=== PATIENT | female | born 1950 | race Caucasian/White ===

== ENCOUNTER 2017-01-06 05:52 | Day surgery (SDC) | payer OTHER ==
--- NOTE | 2017-01-06 06:11 | EKG Report ---
Test Performed on : 01/06/2017 06:02:33 AM Test Reason : Back and chest pain Blood Pressure : / mmHG Vent. Rate : 069 BPM Atrial Rate : 069 BPM P-R Int : 132 ms QRS Dur : 078 ms QT Int : 446 ms P-R-T Axes : 056 022 053 degrees QTc Int : 477 ms Normal sinus rhythm. Minimal voltage criteria for LVH, may be normal variant Borderline ECG No previous ECGs available Unconfirmed Result
[2017-01-06] MEDS ORDERED: MORPHINE IV ONE ×2 (06:17→07:51)
[2017-01-06] MEDS ORDERED: NS 500 ML IV ONE (06:18)
[2017-01-06] MEDS ORDERED: ZOFRAN IV ONE (06:18)
[2017-01-06 07:46] LABS: MANUAL DIFF NEEDED? NO; URINE CULTURE NEEDED? NO; URINE MICRO REVIEW NEEDED? NO; URINE SOURCE CLEAN CATCH
[2017-01-06 07:59] LABS: BILIRUBIN URINE NEGATIVE (NEGATIVE); BLOOD URINE SMALL (NEGATIVE); COLOR YELLOW; GLUCOSE URINE NEGATIVE (NEGATIVE); LEUKOCYTES URINE NEGATIVE (NEGATIVE); NITRITE URINE NEGATIVE (NEGATIVE); PH URINE 6.5; PROTEIN URINE TRACE mg/dL (NEGATIVE); SP GRAVITY URINE 1.018; TURBIDITY URINE CLEAR (CLEAR); UROBILINOGEN URINE NORMAL (NORMAL)
[2017-01-06 08:01] LABS: UR EPITHELIAL CELLS <10 /HPF (<10); URINE BACTERIA 1+ /HPF; URINE RBC <10 /HPF (<10); URINE WBC <10 /HPF (<10)
[2017-01-06 08:14] LABS: AGAP 14; ALBUMIN 4.3 g/dL (3.5-5.0); ALKALINE PHOSPHATASE 114 U/L (32-104); AMYLASE 83 U/L (20-200); BUN 14 mg/dL (8-22); CALCIUM 9.2 mg/dL (8.8-10.2); CHLORIDE 93 mmol/L (98-107); COSMO 270; GOT 17 U/L (10-30); LIPASE 36 U/L (13-60); POTASSIUM 3.3 mmol/L (3.5-5.1); SODIUM 134 mmol/L (136-145); TCO2 27 mmol/L (25-35); TOTAL BILIRUBIN 0.37 mg/dL (0.20-1.00); TOTAL PROTEIN 8.3 g/dL (6.3-8.3)
[2017-01-06 08:27] LABS: GPT 17 U/L (10-36)
[2017-01-06 08:41] LABS: BASO% 0.5 % (0.0-0.8); EOS# 0.01 X1000 (0.0-0.7); EOS% 0.1 % (0.0-10.0); HEMATOCRIT 41.1 % (37.0-47.0); HEMOGLOBIN 14.4 g/dL (12.0-16.0); LYMPH# 1.19 X1000 (1.2-3.4); MCH 31.3 PG (27-31); MCV 89.3 FL (81-99); MONO# 0.48 X1000 (0.11-0.59); MONO% 5.7 % (1.7-9.3); MPV 9.4 FL (7.4-10.4); NEUT% 79.7 % (42.2-75.2); PLT 369 X1000 (130-400)
--- NOTE | 2017-01-06 09:00 | Diag Imaging Result Document ---
PROCEDURE NAME: CHEST-1 VIEW - 01/06/2017 AP PORTABLE CHEST AT 0805 HOURS: FINDINGS: There is no evidence of acute cardiac or pulmonary disease. There may be some mild atelectasis or fibrosis in the left costophrenic sulcus. No previous studies are available for comparison. IMPRESSION: No significant abnormality.
--- NOTE | 2017-01-06 09:05 | ED EKG INTERP ---
EKG Interpretation - EKG Time of EKG reading by physician:: 06:02 EKG Read and Signed by:: Ignacio Zaidi EKG Interpretation (*Must complete 3 of following elements*): Abnormal Rate: 69 Rhythm: NSR QRS: LVH VA Interval: normal ST Wave: normal Attestation - Scribe Verification/Attestation Scribe:: Deacon Temple Acting as Scribe for:: Ignacio Zaidi Scribe documention review:: This chart was documented by a scribe and accurately reflects the service the provider performed and the decisions made by the provider. Physician Attestation - Physician Attestation I, the provider, attest to the following statement:: Ignacio Zaidi Physician documentation Attestation:: This documentation recorded by the scribe accurately reflects the service I personally performed and the decisions made by me.
--- NOTE | 2017-01-06 09:17 | PROVIDER DOCUMENTATION ---
HPI-General Adult - General Chief Complaint: Back Pain Stated Complaint: LOWER BACK PAIN, ABD PAIN Time Seen by Provider: 01/06/17 06:12 Source: patient Allergies/Adverse Reactions: Patient Allergies Allergy/AdvReac Type Severity Reaction Status Date / Time No Known Allergies Allergy Verified 01/06/17 06:11 Home Medications: Home Medication List Medication Instructions Recorded Confirmed Last Taken Type No Home Medications 01/06/17 01/06/17 Unknown History - History of Present Illness -Gen Adult Nature of Presenting Problems: Patient is a 67 y/o F with lower right back pain that radiates to right shoulder and right chest. Patient denies any shortness of breath, fever/chills, n/v/d, or diaphoresis. patient attempted to take ant-acid medications, with no relief. Location of Pain/Injury: reports: back (right lower) Pain Radiation: reports: RUQ, shoulder(s) (right) Quality of Pain: reports: sharp Severity: reports: moderate Onset/Duration: reports: abrupt, this morning Timing: reports: still present, constant Context/Activities at Onset: reports: none Associated Symptoms: reports: back/neck pain, joint pain. denies: chest pain, diaphoresis, diarrhea, fever/chills, nausea, shortness of breath, syncope, vomiting Similar Symptoms Previously?: No Recently seen or treated by another doctor?: No Review of Systems - Adult - REVIEW OF SYSTEMS - ADULT Constitutional: denies: chills, fever Eyes: reports: no symptoms reported Ears, Nose, Mouth & Throat: denies: ear pain, sinus problem, throat pain Cardiovascular: denies: chest pain, palpitations, syncope Respiratory: denies: cough, shortness of breath, wheezing Gastrointestinal: reports: abdominal pain. denies: diarrhea, nausea, vomiting Genitourinary: reports: no symptoms reported Musculoskeletal: reports: back pain, joint pain. denies: neck pain Integumentary: reports: no symptoms reported Neurological: reports: no symptoms reported Psychiatric: reports: no symptoms reported Endocrine: reports: no symptoms reported Hematologic/Lymphatic: reports: no symptoms reported Allergic/Immunologic: reports: no symptoms reported All Other Systems: Reviewed and Negative Past History - Adult - PAST MEDICAL HISTORY-ADULT Review of Records: reports: Old Records Reviewed, Nursing Assessment Review, Medications Reviewed - PRIOR SURGERIES/PROCEDURES Surgical/Procedure History: reports: hysterectomy, other (Rhinoplasty) - IMMUNIZATION STATUS Childhood Immunizations: See Nurse Assessment Flu Vaccine: See Nurse Assessment - FAMILY HISTORY Family History: reviewed, not pertinent - SOCIAL HISTORY Smoking: non-smoker Living Situation: family Physical Exam-General - PHYSICAL EXAM-ADULT Initial Vital Signs Reviewed: Yes - CONSTITUTIONAL General Appearance: alert, no apparent distress - EYES Eyes: PERRL/EOMI, pink conjunctivae - HEAD, EARS, NOSE, MOUTH & THROAT HENMT: normocephalic/atraumatic, moist mucous membranes, normal ENT inspection - NECK Neck: full range of motion, normal inspection. negative: lymphadenopathy - RESPIRATORY Respiratory: lungs clear, normal breath sounds, no respiratory distress, no accessory muscle use - CARDIOVASCULAR Cardiovascular: regular rate, rhythm, no edema, no JVD - GASTROINTESTINAL (ABDOMEN) Abdominal Exam: normal bowel sounds, non tender, soft, no organomegaly, no pulsatile mass - MUSCULOSKELETAL Back Exam: normal inspection, no vertebral tenderness Extremity: normal range of motion, non-tender, normal inspection, no pedal edema - SKIN Integumentary: normal color, warm/dry - NEUROLOGIC Neurologic: grossly normal, no motor/sensory deficits - PSYCHIATRIC Psych/Mental Status: normal mood/affect, normal thought content, normal thought process, oriented x 3 Progress - PLAN OF CARE/RESULTS Progress/Plan/Lab Results: plan of care-labs, xrays. meds, 0839-[id number] scan of abd/pelv ordered Vital Signs Temp Pulse Resp BP Pulse Ox 01/06/17 05:56 97.6 F 69 20 173/70 100 No Known Allergies Allergy (Verified 01/06/17 06:11) No Home Medications 01/06/17 Dietary Diet NPO Start WedJan 06 0617 Laboratory 01/06/17 01/06/17 01/06/17 08:34 06:30 06:30 WBC 8.47 RBC 4.60 Hgb 14.4 Hct 41.1 MCV 89.3 MCH 31.3 H MCHC 35.0 RDW Std Deviation 13.7 Plt Count 369 MPV 9.4 Neut % (Auto) 79.7 H Lymph % (Auto) 14.0 L [place] % (Auto) 5.7 Eos % (Auto) 0.1 Baso % (Auto) 0.5 Neut # (Auto) 6.75 H Lymph # (Auto) 1.19 L [place] # (Auto) 0.48 Eos # (Auto) 0.01 Baso # (Auto) 0.04 Sodium Potassium Chloride Carbon Dioxide Anion Gap BUN Creatinine Estimated GFR/1.73 m2 BUN/Creatinine Ratio Glucose Calculated Osmolality Calcium Total Bilirubin AST ALT Alkaline Phosphatase Troponin T < 0.010 Total Protein Albumin Globulin Albumin/Globulin Ratio Amylase Lipase Urine Source CLEAN CATCH Urine Color YELLOW Urine Turbidity CLEAR Urine pH 6.5 Ur Specific Kemp 1.018 Urine Protein TRACE A Ur Glucose (Stick) NEGATIVE Ur Ketones (Stick) NEGATIVE Urine Blood SMALL A Urine Nitrite NEGATIVE Urine Bilirubin NEGATIVE Urobilinogen Dipstick NORMAL Urine Leukocytes NEGATIVE Urine WBC (Auto) <10 Urine RBC (Auto) <10 U Epithel Cells (Auto) <10 Urine Bacteria (Auto) 1+ 01/06/17 06:30 WBC RBC Hgb Hct MCV MCH MCHC RDW Std Deviation Plt Count MPV Neut % (Auto) Lymph % (Auto) [place] % (Auto) Eos % (Auto) Baso % (Auto) Neut # (Auto) Lymph # (Auto) [place] # (Auto) Eos # (Auto) Baso # (Auto) Sodium 134 L Potassium 3.3 L Chloride 93 L Carbon Dioxide 27 Anion Gap 14 BUN 14 Creatinine 0.7 Estimated GFR/1.73 m2 > 60 BUN/Creatinine Ratio 20 Glucose 118 H Calculated Osmolality 270 Calcium 9.2 Total Bilirubin 0.37 AST 17 ALT 17 Alkaline Phosphatase 114 H Troponin T Total Protein 8.3 Albumin 4.3 Globulin 4.0 Albumin/Globulin Ratio 1.1 Amylase 83 Lipase 36 Urine Source Urine Color Urine Turbidity Urine pH Ur Specific [place]emp Urine Protein Ur Glucose (Stick) Ur Ketones (Stick) Urine Blood Urine Nitrite Urine Bilirubin Urobilinogen Dipstick Urine Leukocytes Urine WBC (Auto) Urine RBC (Auto) U Epithel Cells (Auto) Urine Bacteria (Auto) Orders Category Date Time Status Saline Loc DIRECTED Care 01/06/17 06:17 Active NPO Diet 01/06/17 06:17 Active CHEST-1 VIEW [RAD] Stat Exams 01/06/17 07:[address] ABD/PELVIS W/ IV CONT ONLY [CT] Stat Exams 01/06/17 08:39 Draft US GB < RUQ (LIMITED) [US] Stat Exams 01/06/17 09:42 Taken AMYLASE [CHEM] Stat Lab 01/06/17 06:30 Completed CBC WITH ELECTRONIC DIFF [HEME] Stat Lab 01/06/17 06:30 Completed COMPREHENSIVE METABOLIC PANEL [CHEM] Stat Lab 01/06/17 06:30 Completed LIPASE [CHEM] Stat Lab 01/06/17 06:30 Completed TROPONIN T Stat Lab 01/06/17 08:34 Completed URINALYSIS W/POSS RFLX CULT [URINALYSIS] Stat Lab 01/06/17 06:30 Completed 0.9% Sodium Chloride Inj [Ns] 500 ml Med 01/06/17 06:18 Discontinued IV 125 mls/hr Morphine Med 01/06/17 06:17 Discontinued 4 mg IV NOW ONE Morphine Med 01/06/17 07:51 Discontinued 4 mg IV NOW ONE Ondansetron [Zofran] Med 01/06/17 06:18 Discontinued 4 mg IV NOW ONE EKG [EKG] Stat Ther 01/06/17 05:59 Draft 1047- will be paged [phone]-Patient updated on wait, Daughter( works in [employer] at the [employer]) wants paged [phone]- will see patient in ED, per office - XRAY 1 XRAY Study: Chest Impression: Abnormal XRAY Interpretation: nad, atelectasis or fibrosis mild in the left costophrenic sulcus - CT/MRI 1 CT Study: Abdomen, Pelvis Impression: Abnormal CT Results: numerous gallstones in gb, diverticular coli - ULTRASOUND (By Radiology) 1 US Study: Gallbladder Impression: Abnormal US Results: cholelithiasis, negative parnell's - CONSULTS/PCP/HOSPITALIST Notification #1 *Consult/PCP/Hospitalist*: Time Discussed: 11:35 Reason/Comments: saw patient in ED Consult Disposition: other (admit to outpatient surgery) Departure - Departure Time of Disposition Order: 11:39 DIAGNOSIS: Cholelithiases Qualifiers: Cholelithiasis location: gallbladder Cholecystitis presence: without cholecystitis Biliary obstruction: without biliary obstruction Qualified Code(s) : K80.20 - Calculus of gallbladder without cholecystitis without obstruction Disposition: ADMITTED INPATIENT 09 Certified Medical Emergency: Emergent Condition: Stable Additional Instructions: ED Follow Up Instructions: You have been treated by a care provider in the Emergency Department. These instructions are being provided to you so you can have an understanding of how to care for yourself upon discharge. Upon discharge from the Emergency Department, you are responsible for making arrangements for follow-up care by a physician of your choice. Take all prescribed medications as directed. Return to the Emergency Department immediately for any new or worsening symptoms. You may call the Physician Referral phone number at [phone] to obtain a list of Physicians who are taking new patients. Referrals: None,PCP [Primary Care Provider] - Attestation - Scribe Verification/Attestation Scribe:: Deacon Temple Acting as Scribe for:: Ignacio Zaidi Scribe documention review:: This chart was documented by a scribe and accurately reflects the service the provider performed and the decisions made by the provider. Physician Attestation - Physician Attestation I, the provider, attest to the following statement:: Ignacio Zaidi Physician documentation Attestation:: This documentation recorded by the scribe accurately reflects the service I personally performed and the decisions made by me.
--- NOTE | 2017-01-06 09:44 | Diag Imaging Result Document ---
PROCEDURE NAME: CT ABD/PELVIS W/ IV CONT ONLY - 01/06/2017 CT ABDOMEN AND PELVIS WITH INTRAVENOUS CONTRAST, 01/06/2017: COMPARISON: None. FINDINGS: The gallbladder is slightly distended, and there are numerous small to moderate-size gallstones in the gallbladder. No significant wall thickening or surrounding inflammation. No biliary dilation. There is some atrophy of the pancreatic head. This spleen, adrenals and kidneys are normal. There are numerous diverticula of the sigmoid colon. No bowel obstruction or inflammation. Uterus is absent. Urinary bladder and rectum are normal. Normal appendix. Moderate degenerative changes of the spine. No acute bony lesions. IMPRESSION: 1. Numerous gallstones in the gallbladder. Consider a gallbladder ultrasound for further evaluation. 2. Diverticulosis coli.
--- NOTE | 2017-01-06 10:53 | Diag Imaging Result Document ---
PROCEDURE NAME: US GB < RUQ (LIMITED) - 01/06/2017 RIGHT UPPER QUADRANT ULTRASOUND: FINDINGS: The pancreas is unremarkable in appearance. The aorta and inferior vena cava are normal where they are visible. There are numerous stones in the gallbladder. These measure up to 1 cm in size. There is no evidence of biliary dilatation or a sonographic Paz's sign. The gallbladder wall does not appear to be thickened and there is no evidence of pericholecystic fluid. The liver is otherwise unremarkable with antegrade flow in the portal vein. The right kidney is without evidence of hydronephrosis or mass. IMPRESSION: Cholelithiasis.
[2017-01-06] MEDS ORDERED: SODIUM CHLORIDE 0.9% ONE (11:57)
[2017-01-06] MEDS ORDERED: LR 1,000 ML ONE ×3 (11:57→14:49)
[2017-01-06] MEDS ORDERED: MARCAINE 0.25% PF/EPI 1:200,000 ONE (11:57)
[2017-01-06] MEDS ORDERED: DIPRIVAN 1% ONE ×2 (12:03→14:00)
[2017-01-06] MEDS ORDERED: FENTANYL ONE (12:03)
[2017-01-06] MEDS ORDERED: KEFZOL 1 GM/D5W 50 ML ONE (12:07)
[2017-01-06] MEDS ORDERED: DEMEROL ONE (12:08)
[2017-01-06 13:32] LABS: URINE MICRO REVIEW NEEDED? NO; URINE SOURCE CATH
[2017-01-06 13:38] LABS: BILIRUBIN URINE NEGATIVE (NEGATIVE); BLOOD URINE TRACE (NEGATIVE); COLOR YELLOW; GLUCOSE URINE NEGATIVE (NEGATIVE); LEUKOCYTES URINE NEGATIVE (NEGATIVE); NITRITE URINE NEGATIVE (NEGATIVE); PH URINE 7.5; PROTEIN URINE TRACE mg/dL (NEGATIVE); TURBIDITY URINE CLEAR (CLEAR); UR EPITHELIAL CELLS <10 /HPF (<10); URINE BACTERIA NEGATIVE /HPF; URINE RBC <10 /HPF (<10); URINE WBC <10 /HPF (<10); UROBILINOGEN URINE NORMAL (NORMAL)
--- NOTE | 2017-01-06 13:43 | Diag Imaging Result Document ---
PROCEDURE NAME: OPERATIVE CHOLANGIOGRAM - 01/06/2017 INTRAOPERATIVE CHOLANGIOGRAM: COMPARISON: CT earlier 01/06/2017. FINDINGS: The exam was performed by the patient's surgeon. Contrast was infused into the cystic duct. This outlines the biliary tree well and appears normal. The common bile duct also appears normal and there is good flow of contrast into the duodenum. There is a small amount reflux into the main pancreatic duct as well. IMPRESSION: No evidence of complication.
[2017-01-06] MEDS ORDERED: VERSED ONE (13:59)
[2017-01-06] MEDS ORDERED: MORPHINE ONE (14:10)
--- NOTE | 2017-01-06 14:11 | OPERATIVE NOTE ---
PROCEDURE DATE: 01/06/2017 PREOPERATIVE DIAGNOSIS: Acute and chronic cholecystitis with cholelithiasis. POSTOPERATIVE DIAGNOSIS: Acute and chronic cholecystitis with cholelithiasis. PROCEDURE PERFORMED: Laparoscopic cholecystectomy with cholangiogram. SURGEON: Garrick Childress MD DESCRIPTION OF PROCEDURE: The patient was brought to the operating room and, after satisfactory induction of IV and endotracheal anesthesia, athrombic TEDs and a Mccarthy catheter were placed. Her abdomen was broadly prepped and draped in the appropriate manner for laparoscopy. Initially, the infraumbilical area was infiltrated with 0.25% Marcaine with epinephrine. Dissection was taken sharply down through skin and subcutaneous tissue. The fascia was tacked with 0 Surgilon and incised. Under direct visualization, a Celina trocar was placed. The abdomen was insufflated to 3-1/2 L of carbon dioxide. Again, after infiltration with Marcaine and epinephrine, one 10 and two 5 mm trocars were placed across the right epigastrium. The gallbladder was seen to be intensely inflamed with hemorrhagic areas on the lumen as well as dense omental adhesions. The omental adhesions were peeled down. The suction log yard derrick operator harpoon was used to puncture the gallbladder to decompress it. The fluid was sent for anaerobic and aerobic cultures. The gallbladder was subsequently grasped and retracted superiorly. The hilar structures were dissected. The cystic duct was slightly dilated. Cystic duct cholangiogram revealed good flow of contrast into the duodenum with no obstruction. The catheter was subsequently removed and the duct was doubly clipped and divided. The cystic artery was subsequently dissected out, doubly clipped and divided as well. The gallbladder was dissected from the liver bed with the use of the monopolar scissors. On completion, the gallbladder was placed in an EndoCatch bag and removed. On opening, there were multiple stones in the 1 to 1.5 cm range. Reinspection of the liver bed revealed small bleeding points that were controlled by electrocautery. The subhepatic and subphrenic spaces were aspirated free of a small amount of bile and blood. All trocars were removed after abdominal deflation. The subumbilical incision underwent fascial closures of 0 Surgilon. All skin incisions were closed with subcuticular 4-0 Vicryl. Steri-Strips, Telfa, and Op-Sites were applied. The patient was awakened and extubated in the operating room and transferred to recovery. Estimated blood loss was around 10 mL.
[2017-01-06] MEDS ORDERED: D5 1/2 NS 1,000 ML ONE (14:29)
[2017-01-06] MEDS ORDERED: ZOFRAN IV PRN (14:34)
[2017-01-06] MEDS ORDERED: ZOFRAN ONE (14:49)
[2017-01-06] MEDS ORDERED: NEOSTIGMINE ONE (14:49)
[2017-01-06] MEDS ORDERED: QUELICIN (DOSE) ONE (14:49)
[2017-01-06] MEDS ORDERED: ROBINUL ONE (14:49)
[2017-01-06] MEDS ORDERED: XYLOCAINE-MPF 2% ONE (14:49)
[2017-01-06] MEDS ORDERED: ZEMURON ONE (14:49)
[2017-01-06] MEDS ORDERED: DECADRON ONE (14:49)
[2017-01-06 14:56] LABS: SP GRAVITY URINE >= 1.030
[2017-01-06] MEDS: D5 1/2 NS 1,000 ML IV SCH ×2 (15:00→22:20)
[2017-01-06] MEDS: MORPHINE IV PRN ×2 (16:17→22:20)
[2017-01-06] MEDS: NORCO-10 PO PRN ×2 (19:36→20:58)
[2017-01-06] MEDS: PERIDEX MT SCH (19:36)
[2017-01-06] MEDS: KEFZOL 1 GM/D5W 50 ML IV SCH (20:54)
[2017-01-07] MEDS: PERIDEX MT SCH (02:49)
[2017-01-07] MEDS: D5 1/2 NS 1,000 ML IV SCH (02:50)
[2017-01-07] MEDS: NORCO-10 PO PRN (03:34)
[2017-01-07] MEDS: KEFZOL 1 GM/D5W 50 ML IV SCH (05:31)
[2017-01-07 06:04] LABS: MANUAL DIFF NEEDED? NO
[2017-01-07 06:06] LABS: BASO% 0.1 % (0.0-0.8); EOS# 0.03 X1000 (0.0-0.7); EOS% 0.2 % (0.0-10.0); HEMATOCRIT 35.5 % (37.0-47.0); HEMOGLOBIN 12.4 g/dL (12.0-16.0); IMM GRAN# 0.03 X1000 (0.0-0.04); IMM GRAN% 0.2 % (0.0-0.5); LYMPH# 1.09 X1000 (1.2-3.4); LYMPH% 8.6 % (20.5-51.1); MCH 30.9 PG (27-31); MCHC 34.9 g/dL (33-37); MCV 88.5 FL (81-99); MONO# 0.85 X1000 (0.11-0.59); MONO% 6.7 % (1.7-9.3); MPV 9.3 FL (7.4-10.4); NEUT% 84.2 % (42.2-75.2); PLT 341 X1000 (130-400); RBC 4.01 XMIL (4.2-5.4)
[2017-01-07 06:38] LABS: AGAP 12; ALBUMIN 3.5 g/dL (3.5-5.0); ALKALINE PHOSPHATASE 84 U/L (32-104); BUN 7 mg/dL (8-22); CALCIUM 8.9 mg/dL (8.8-10.2); CHLORIDE 100 mmol/L (98-107); COSMO 276; GOT 35 U/L (10-30); GPT 34 U/L (10-36); POTASSIUM 4.3 mmol/L (3.5-5.1); SODIUM 138 mmol/L (136-145); TCO2 26 mmol/L (25-35); TOTAL BILIRUBIN 0.41 mg/dL (0.20-1.00); TOTAL PROTEIN 6.7 g/dL (6.3-8.3)
[2017-01-07 07:41] VITALS: BP 132/72
== END 2017-01-07 08:43 | disposition home or self-care (01) ==
LOC: ED 05:52 → OPS 11:51 → UNDOADMOB 14:09 → 4N 14:09 → UNDODISOB 01-07 08:43 → OPS 01-07 08:43
PROVIDERS: ATTEND Surgery
DX: K80.00 Calculus of gallbladder with acute cholecystitis without obstruction (principal)
CPT/HCPCS: 71010; 74177; 74300; 76705; 80053; 81001; 82150; 83690; 84484; 85025; 87070; 87075; 87205; 88304; 93005; 94761; 94799; 96374; 96376; J0330; J0690; J1100; J2175; J2250; J2270; J2405; J3010; J7040; J7120; Q9966; Q9967; J2710